=== PATIENT | female | born 1960 | race Caucasian/White ===

== ENCOUNTER 2016-06-24 19:43 | Emergency (ER) | payer BC, OTHER ==
[2016-06-24] MEDS ORDERED: HYDROcod/ACETAM 5/325 MG TABLET PO STA (20:02)
[2016-06-24] MEDS ORDERED: HYDROcod/ACETAM 5/325 MG TABLET ONE (20:06)
[2016-06-24] MEDS ORDERED: TETANUS/DIPHTHERIA TOXOID 0.5 ML SYRINGE IM ONE (20:17)
[2016-06-24] MEDS ORDERED: TETANUS/DIPHTHERIA/PERTUSSIS 0.5 ML SYRINGE IM ONE ×2 (20:20→20:24)
[2016-06-24] MEDS ORDERED: LIDOCAINE 1% 50 ML MDV SUBQ STA (20:53)
[2016-06-24] MEDS ORDERED: LIDOCAINE 2% 10 ML MDV ONE (20:55)
[2016-06-24] MEDS ORDERED: CEPHALEXIN 250 MG Prepack 8 PO ONE ×2 (21:19→21:31)
== END 2016-06-24 21:38 | disposition home or self-care (01) ==
DX: S61.412A Laceration without foreign body of left hand, initial encounter (principal); W26.0XXA Contact with knife, initial encounter; Y93.G3 Activity, cooking and baking; Z23 Encounter for immunization
CPT/HCPCS: 12001; 73130; 99283; A9270

== ENCOUNTER 2022-03-06 15:44 | Outpatient (CLI) | payer SELFPAY | END 2022-03-06 15:45 | disposition critical access hospital (66) | LOC: EMS 15:44 | DX: M54.50 Low back pain, unspecified (principal); R20.0 Anesthesia of skin; R32 Unspecified urinary incontinence | CPT/HCPCS: A0425; A0427 ==